=== PATIENT | female | born 1930 | race Asian ===

== ENCOUNTER 2020-02-14 03:41 | Inpatient (IN) | payer MEDICARE ==
[~2020-02-14] VITALS: Ht 157.5 cm; Wt 64.0 kg
--- NOTE | 2020-02-14 05:30 | NUR ---
GPS-X RAY OPERATOR NOTE: ADMITTED AN 89-YR OLD FEMALE, FROM [facility]. ADMITTED ON A 5150 FOR GD. PER HOLD, PT AGGRESSIVE WITH SCISSORS IN HER HAND, TRYING TO REMOVE ANIA FROM BACK OF HER HEAD. PT THREATENED STAFF WITH SCISSORS AND BECAME COMBATIVE WHEN ATTEMPTS WERE MADE TO TAKE AWAY SCISSORS. UPON FACE TO FACE ASSESSMENT, PATIENT IS A/OX1-2, ANXIOUS, DEPRESSED MOOD, FLAT AFFECT, UNCOOPERATIVE AND TEARFUL. PT. DENIES SI/HI/AVH AT THIS TIME. PT WAS ADVISED OF THE HOLD. PT RIGHTS HANDBOOK AND A GUIDE TO PRESCRIPTION MEDICATIONS GIVEN. IN NO APPARENT DISTRESS NOTED. PT BELONGINGS WERE INVENTORIED AND CHECKED FOR CONTRABAND. PT. IS UNDER THE PSYCHIATRIC CARE OF DR. EDISON PAGE AND THE MEDICAL CARE OF VANE LIRA. PT REFUSED FULL BODY ASSESSMENT, BUT PT ONLY ALLOWED PICTURE TO BE TAKEN ON HER LEFT UPPER CHEST PACEMAKER AND FACE. PT BECAME AGITATED WHEN BEING TOUCHED. BED LOCKED AND PLACED IN LOWEST POSITION TO MAINTAIN SAFETY. FALL PRECAUTIONS IMPLEMENTED. PATIENT REFUSED TO SIGN PAPERWORK SHE CLAIMED SHE JUST WANTED TO REST. PT REFUSED TO GIVE 2 RINGS WHITE/YELLOW ON HER LEFT 4TH FINGER. PT REFUSED FLU/PNEUMONIA VACCINE DESPITE OF EDUCATION THE RISKS AND BENEFITS. WILL CONTINUE TO MONITOR Q15 MINS ROUNDS FOR SAFETY AND BEHAVIOR. LEFT VOICE MESSAGE TO AKHIL (SON) REGARDING PT'S ADMISSION. WILL ENDORSE TO THE DAY SHIFT NURSE FOR CONTINUITY OF CARE.
[2020-02-14 05:48] VITALS: BP 135/66
[2020-02-14] MEDS ORDERED: MAGNESIUM HYDROXIDE 30 ML UDC PO PRN (06:00)
[2020-02-14] MEDS ORDERED: ACETAMINOPHEN 325 MG TABLET PO PRN ×2 (06:00→10:00)
[2020-02-14] MEDS ORDERED: TEMAZEPAM 7.5 MG CAPSULE PO PRN (06:00)
[2020-02-14] MEDS ORDERED: BLOOD SUGAR DIAGNOSTIC 1 EACH STRIP IN ONE (06:00)
[2020-02-14] MEDS ORDERED: MAG HYDROX/AL HYDROX/SIMETH 30 ML UDC PO PRN (06:00)
[2020-02-14] MEDS ORDERED: LORAZEPAM 0.5 MG TABLET PO PRN (06:00)
[2020-02-14 08:00] VITALS: BP 113/55
[2020-02-14] MEDS ORDERED: ASPI-1420 PO (09:06)
[2020-02-14] MEDS ORDERED: DIGO125T PO (09:06)
[2020-02-14] MEDS ORDERED: PANT40TA2 PO (09:06)
[2020-02-14] MEDS ORDERED: SPIR25TA PO (09:06)
[2020-02-14] MEDS ORDERED: DRON400T2 PO (09:06)
[2020-02-14] MEDS ORDERED: POLY15DR40 EACHEYE (09:06)
[2020-02-14] MEDS ORDERED: MULT-447 PO (09:06)
[2020-02-14] MEDS ORDERED: SODI88SP18 (09:06)
[2020-02-14] MEDS ORDERED: MIRT7.5T10 PO (09:06)
[2020-02-14] MEDS ORDERED: LIDO30AD10 TP (09:06)
[2020-02-14] MEDS ORDERED: MAGN400O6 PO (09:06)
[2020-02-14] MEDS ORDERED: PRAV10TA40 PO (09:06)
[2020-02-14] MEDS ORDERED: GUAI100S11 PO (09:06)
[2020-02-14] MEDS ORDERED: LORA10TA7 PO (09:06)
[2020-02-14] MEDS ORDERED: LACT-58 PO (09:06)
[2020-02-14] MEDS ORDERED: MEMA10TA PO (09:06)
[2020-02-14] MEDS ORDERED: LEVO112T2 PO (09:06)
[2020-02-14] MEDS ORDERED: DONE10TA44 PO (09:06)
[2020-02-14] MEDS ORDERED: ZOLP5TAB8 PO (09:06)
[2020-02-14] MEDS ORDERED: IPRA3AMP23 IH (09:06)
[2020-02-14] MEDS ORDERED: TYL2T PO (09:06)
[2020-02-14] MEDS ORDERED: THIA100T70 PO (09:06)
[2020-02-14] MEDS ORDERED: FURO-145 PO (09:06)
[2020-02-14] MEDS ORDERED: CRAN450C PO (09:06)
[2020-02-14] MEDS ORDERED: ERGO500014 PO (09:06)
[2020-02-14] MEDS ORDERED: FERR325T23 PO (09:06)
[2020-02-14] MEDS ORDERED: ACET-868 PO (09:06)
[2020-02-14] MEDS ORDERED: DULO60CA45 PO (09:06)
[2020-02-14] MEDS ORDERED: LORATADINE 10 MG TABLET PO PRN (10:00)
[2020-02-14] MEDS ORDERED: GUAIFENESIN 300 MG/15 ML UDC PO PRN (10:00)
--- NOTE | 2020-02-14 13:35 | NUR ---
Facility Contact: Soha ([phone]) from [facility] called the SW and stated that the pt may not be allowed to return if she receives a dementia diagnosis. She asked that the SW keep her involved in the treatment planning.
--- NOTE | 2020-02-14 15:02 | NUR ---
Family Contact: SW called the pts son, Megan ([phone]), and informed him that the SW spoke to the facility who are stating that the pt will need alternative placement if she has a dementia diagnosis. Pts son stated that he wants the MD in the hospital to evaluate and then wants to be informed. SW stated that someone will follow up with him.
--- NOTE | 2020-02-14 15:48 | NUR ---
Initial Discharge Plan: Pt currently resides at [facility] located at [address] [place] [address]; ([phone]). Per pts son, he would like the pt to return to the facility. LONDON will work with the pt, pts son and the pts MD regarding appropriate discharge planning. SW will form a safe and proper discharge.
[2020-02-14 16:00] VITALS: BP 132/54
[2020-02-14] MEDS: PANTOPRAZOLE 40 MG TABLET.DR PO SCH (17:00)
[2020-02-14] MEDS: ACETAMINOPHEN 325 MG TABLET PO SCH (17:00)
[2020-02-14] MEDS: DRONEDARONE HYDROCHLORIDE 400 MG TABLET PO SCH (17:00)
--- NOTE | 2020-02-14 17:27 | NUR ---
GPS MITTEN STITCHER: NOTES PT REFUSED HER DINNER, PT JUST WANTS TO SLEEP. NO DISTRESS NOTED.
[2020-02-14 20:20] VITALS: BP 107/52
[2020-02-14] MEDS: ATORVASTATIN 10 MG TABLET PO SCH (21:33)
[2020-02-15] MEDS: LEVOTHYROXINE SODIUM 112 MCG TABLET PO SCH (07:21)
[2020-02-15 07:48] LABS: CHOLESTEROL 169 mg/dL (<200); HDL CHOLESTEROL 44 mg/dL (40-60); LDL 98 mg/dL (0-99); TRIGLYCERIDES 219 mg/dL (30-150)
[2020-02-15 07:50] LABS: ALBUMIN 2.2 g/dL (3.4-5.0); BILIRUBIN,TOTAL 0.3 mg/dL (0.2-1.0); CALCIUM, SERUM 8.3 mg/dL (8.5-10.1); CREATININE 1.2 mg/dL (0.6-1.3); POTASSIUM 3.9 mmol/L (3.5-5.1); TOTAL PROTEIN, SERUM 5.8 g/dL (6.4-8.2)
[2020-02-15 08:00] VITALS: BP 124/57
--- NOTE | 2020-02-15 09:00 | NUR ---
RN NOTE- PT WITHDRAWN, ISOLATIVE CALM PO INTAKE FAIR MED COMPLIANT NO BEHAVIORAL ISSUES
[2020-02-15] MEDS: ACETAMINOPHEN 325 MG TABLET PO SCH ×2 (09:21→16:54)
[2020-02-15] MEDS: ASPIRIN EC 81 MG TABLET.DR PO SCH (09:22)
[2020-02-15] MEDS: SPIRONOLACTONE 25 MG TABLET PO SCH (09:22)
[2020-02-15] MEDS: THIAMINE HCL 100 MG TABLET PO SCH (09:22)
[2020-02-15] MEDS: FUROSEMIDE 20 MG TABLET PO SCH (09:22)
[2020-02-15] MEDS: PANTOPRAZOLE 40 MG TABLET.DR PO SCH ×2 (09:22→16:54)
[2020-02-15] MEDS: LIDOCAINE 5% (PATCH) 1 EA PATCH TP SCH (09:23)
[2020-02-15] MEDS: FERROUS SULFATE (325 MG) 325 MG/TAB TABLET PO SCH (09:24)
[2020-02-15] MEDS: DRONEDARONE HYDROCHLORIDE 400 MG TABLET PO SCH ×2 (09:26→16:55)
--- NOTE | 2020-02-15 11:34 | NUR ---
WOUND CARE CONSULT: PT PRESENTS WITH RAISED AREA TO POSTERIOR SCALP WITH DRY ABRASION, PRESENT ON ADMISSION. RECOMMENDATIONS MADE FOR SKIN PROTECTION. DISCUSSED WITH NURSING STAFF. PT IS INCONTINENT. MD IN AGREEMENT WITH PLAN OF CARE. Addendum: 02/15/20 at 1135 by BOGDAN MADRID WNDNU Amended: Links added.
[2020-02-15] MEDS: DIGOXIN 0.125 MG TABLET PO SCH (12:40)
[2020-02-15] MEDS: Z GUARD REMEDY 2 OZ OINT TP SCH (12:40)
--- NOTE | 2020-02-15 12:41 | NUR ---
RN NOTE- APICAL HR 57/M DIGOXIN HELD
[2020-02-15 16:00] VITALS: BP 117/53
[2020-02-15 20:38] VITALS: BP 119/44
--- NOTE | 2020-02-15 21:15 | NUR ---
GPS RN NOTE: REFUSED FULL SKIN ASSESSMENT PATIENT REFUSED FULL BODY SKIN ASSESSMENT. NOTED PATIENT WITH RIGHT & LEFT BUTTOCK REDNESS BUT UNABLE TO TAKE PICTURE DUE TO PT'S UNCOOPERATIVE BEHAVIOR, WANTED TO BE CLEANED QUICK & COVER HERSELF, EMOTIONAL, ANXIOUS & UNPREDICTABLE. Z GUARD APPLIED. ABLE TO TURN & REPOSITION IN BED INDEPENDENTLY.
--- NOTE | 2020-02-15 21:45 | NUR ---
GPS RN NOTE: SEEN BY DR. HOGAN PATIENT SEEN BY DR. HOGAN WITH NEW ORDER. NOTED & CARRIED OUT.
[2020-02-15] MEDS: MIRTAZAPINE 15 MG TABLET PO SCH (21:47)
[2020-02-15] MEDS: ATORVASTATIN 10 MG TABLET PO SCH (21:47)
--- NOTE | 2020-02-15 22:30 | NUR ---
GPS RN NOTE PATIENT ASKED TO EAT, STATED," I AM HUNGRY, CAN YOU GIVE ME BREAD." PATIENT HAD SLICE OF BREAD, APPLE SAUCE & APPLE/CRANBERRY JUICE & TOLERATED WELL. CONTINUING TO MONITOR FOR ANY CHANGES.
[2020-02-15 23:06] VITALS: BP 126/55
[2020-02-16] MEDS: Z GUARD REMEDY 2 OZ OINT TP PRN (00:14)
--- NOTE | 2020-02-16 00:30 | NUR ---
GPS RN NOTE PATIENT HAD LOOSE, FOUL ODOR BM X 2, NOTIFIED DR. MARTINEZ ABOUT BM FINDINGS, ORDERED TO COLLECT STOOL FOR C-DIFF. WILL CONTINUE TO MONITOR FOR ANY CHANGES.
--- NOTE | 2020-02-16 06:56 | NUR ---
NO BM AT THIS TIME TO COLLECT FOR STOOL C-DIFF, WILL ENDORSE TO AM RN FOR CONTINUITY OF CARE.
[2020-02-16 08:00] VITALS: BP 126/60
[2020-02-16] MEDS: PANTOPRAZOLE 40 MG TABLET.DR PO SCH ×2 (08:32→16:55)
[2020-02-16] MEDS: ASPIRIN EC 81 MG TABLET.DR PO SCH (08:32)
[2020-02-16] MEDS: LEVOTHYROXINE SODIUM 112 MCG TABLET PO SCH (08:32)
[2020-02-16] MEDS: THIAMINE HCL 100 MG TABLET PO SCH (08:32)
[2020-02-16] MEDS: FERROUS SULFATE (325 MG) 325 MG/TAB TABLET PO SCH (08:32)
[2020-02-16] MEDS: SPIRONOLACTONE 25 MG TABLET PO SCH (08:32)
[2020-02-16] MEDS: FUROSEMIDE 20 MG TABLET PO SCH (08:32)
[2020-02-16] MEDS: LIDOCAINE 5% (PATCH) 1 EA PATCH TP SCH (08:33)
[2020-02-16] MEDS: ACETAMINOPHEN 325 MG TABLET PO SCH ×2 (08:33→16:55)
[2020-02-16] MEDS: DRONEDARONE HYDROCHLORIDE 400 MG TABLET PO SCH ×2 (09:42→16:56)
[2020-02-16] MEDS: Z GUARD REMEDY 2 OZ OINT TP SCH (09:43)
[2020-02-16] MEDS ORDERED: ERGOCALCIFEROL (VITAMIN D 2) 50,000 UNIT CAPSULE PO SCH (10:00)
[2020-02-16 16:00] VITALS: BP 109/56
--- NOTE | 2020-02-16 20:30 | NUR ---
GPS RN NOTE: STOOL SPECIMEN COLLECTED TO R/O C-DIFF ORDERED BY DR. MARTINEZ & SENT TO THE LAB.
[2020-02-16 20:50] VITALS: BP 105/53
[2020-02-16] MEDS: MIRTAZAPINE 15 MG TABLET PO SCH (21:59)
[2020-02-16] MEDS: ATORVASTATIN 10 MG TABLET PO SCH (21:59)
[2020-02-17] MEDS: Z GUARD REMEDY 2 OZ OINT TP PRN (03:12)
[2020-02-17 08:00] VITALS: BP 113/64
[2020-02-17] MEDS: DRONEDARONE HYDROCHLORIDE 400 MG TABLET PO SCH ×2 (08:49→17:27)
[2020-02-17] MEDS: THIAMINE HCL 100 MG TABLET PO SCH (08:49)
[2020-02-17] MEDS: PANTOPRAZOLE 40 MG TABLET.DR PO SCH ×2 (08:49→17:26)
[2020-02-17] MEDS: LEVOTHYROXINE SODIUM 112 MCG TABLET PO SCH (08:49)
[2020-02-17] MEDS: FERROUS SULFATE (325 MG) 325 MG/TAB TABLET PO SCH (08:49)
[2020-02-17] MEDS: ACETAMINOPHEN 325 MG TABLET PO SCH ×2 (08:49→17:26)
[2020-02-17] MEDS: SPIRONOLACTONE 25 MG TABLET PO SCH (08:50)
[2020-02-17] MEDS: LIDOCAINE 5% (PATCH) 1 EA PATCH TP SCH (08:50)
[2020-02-17] MEDS: ASPIRIN EC 81 MG TABLET.DR PO SCH (08:50)
[2020-02-17] MEDS: FUROSEMIDE 20 MG TABLET PO SCH (08:50)
[2020-02-17] MEDS: Z GUARD REMEDY 2 OZ OINT TP SCH (09:09)
[2020-02-17] MEDS: DIGOXIN 0.125 MG TABLET PO SCH (14:00)
[2020-02-17 16:00] VITALS: BP 154/55
[2020-02-17 20:27] VITALS: BP 101/46
[2020-02-17 20:40] VITALS: BP 101/46
[2020-02-17 21:14] VITALS: BP 104/55
[2020-02-17] MEDS: ATORVASTATIN 10 MG TABLET PO SCH (21:41)
--- NOTE | 2020-02-17 21:45 | NUR ---
GPS RN NOTE: SEEN BY MD PATIENT WAS SEEN BY DR. HOGAN WITH NO NEW ORDER AT THIS TIME. PATIENT VERBALIZED THOUGHTS OF WANTING TO TO DR. HOGAN BUT NO PLANS. PT. ALSO STATED THAT SHE FEELS DEPRESSED. CONTINUING TO MONITOR PATIENT Q 15 MIN & PRN FOR SAFETY, MOOD & BEHAVIOR.
[2020-02-17] MEDS: MIRTAZAPINE 15 MG TABLET PO SCH (21:56)
[2020-02-18] MEDS: Z GUARD REMEDY 2 OZ OINT TP PRN (03:16)
[2020-02-18] MEDS: LEVOTHYROXINE SODIUM 112 MCG TABLET PO SCH (07:35)
[2020-02-18 08:00] VITALS: BP 127/65
[2020-02-18] MEDS: PANTOPRAZOLE 40 MG TABLET.DR PO SCH ×2 (08:28→17:05)
[2020-02-18] MEDS: ASPIRIN EC 81 MG TABLET.DR PO SCH (08:28)
[2020-02-18] MEDS: ACETAMINOPHEN 325 MG TABLET PO SCH ×2 (08:28→17:05)
[2020-02-18] MEDS: FERROUS SULFATE (325 MG) 325 MG/TAB TABLET PO SCH (08:28)
[2020-02-18] MEDS: FUROSEMIDE 20 MG TABLET PO SCH (08:29)
[2020-02-18] MEDS: SPIRONOLACTONE 25 MG TABLET PO SCH (08:29)
[2020-02-18] MEDS: THIAMINE HCL 100 MG TABLET PO SCH (08:30)
[2020-02-18] MEDS: DRONEDARONE HYDROCHLORIDE 400 MG TABLET PO SCH ×2 (08:35→17:05)
[2020-02-18] MEDS: Z GUARD REMEDY 2 OZ OINT TP SCH (08:35)
[2020-02-18] MEDS: LIDOCAINE 5% (PATCH) 1 EA PATCH TP SCH (08:49)
[2020-02-18 16:19] VITALS: BP 144/80
[2020-02-18 20:18] VITALS: BP 106/61
[2020-02-18] MEDS: ATORVASTATIN 10 MG TABLET PO SCH (21:03)
[2020-02-18] MEDS: MIRTAZAPINE 15 MG TABLET PO SCH (21:04)
[2020-02-19] MEDS: LEVOTHYROXINE SODIUM 112 MCG TABLET PO SCH (06:42)
[2020-02-19 08:00] VITALS: BP 104/49
[2020-02-19] MEDS: THIAMINE HCL 100 MG TABLET PO SCH (08:42)
[2020-02-19] MEDS: ACETAMINOPHEN 325 MG TABLET PO SCH ×2 (08:42→17:07)
[2020-02-19] MEDS: SPIRONOLACTONE 25 MG TABLET PO SCH (08:43)
[2020-02-19] MEDS: ASPIRIN EC 81 MG TABLET.DR PO SCH (08:43)
[2020-02-19] MEDS: FERROUS SULFATE (325 MG) 325 MG/TAB TABLET PO SCH (08:43)
[2020-02-19] MEDS: PANTOPRAZOLE 40 MG TABLET.DR PO SCH ×2 (08:43→17:07)
[2020-02-19] MEDS: FUROSEMIDE 20 MG TABLET PO SCH (08:44)
--- NOTE | 2020-02-19 08:44 | NUR ---
RN NOTE: MEDICATION HELD 0900 SPIRONOLACTONE AND LASIX HELD DUES TO BP 104/49
[2020-02-19] MEDS: LIDOCAINE 5% (PATCH) 1 EA PATCH TP SCH (08:47)
[2020-02-19] MEDS: DRONEDARONE HYDROCHLORIDE 400 MG TABLET PO SCH ×2 (08:47→17:06)
[2020-02-19] MEDS: Z GUARD REMEDY 2 OZ OINT TP SCH (08:52)
[2020-02-19] MEDS: LORAZEPAM 1 MG TABLET PO PRN ×2 (09:42→20:03)
--- NOTE | 2020-02-19 09:42 | NUR ---
RN NOTE: ANXIETY AND AGITATION PT EXHIBITING INCREASED ANXIETY, AGITATION AND IRRITABILITY. ATTEMPTING TO WALK WITH WALKER. UNSTEADY GAIT. UNABLE TO BE REDIRECTED. YELLING AND THROWING ITEMS AT STAFF. MEDICATED WITH ATIVAN 1MG PO PRN.
--- NOTE | 2020-02-19 12:49 | NUR ---
RN NOTE: DIGOXIN HELD DIGOXIN HELD DUE TO APICAL PULE 58.
[2020-02-19] MEDS: DIGOXIN 0.125 MG TABLET PO SCH (12:50)
[2020-02-19 16:00] VITALS: BP 108/51
--- NOTE | 2020-02-19 19:56 | NUR ---
GPS RN NOTES: REFUSED ATIVAN PT AGITATED IN BED. TRYING TO GET OUT OF BED YELLING. OFFERED PT ATIVAN 1MG PO PRN ORDERED. PT AGREED. PULLED MEDICATION OUT. PT THEN REFUSED MEDICATION AND ANGRY MOOD. PT REFUSED X3. WASTED MEDICATION W/ REGISTERED PHLEBOTOMIST PART TIME NURSE WITNESS WASTE. WILL CONTINUE TO MONITOR.
--- NOTE | 2020-02-19 20:03 | NUR ---
GPS RN NOTES: ANXIOUS PT STATED, "I WANT TO GO HOME! GIVE ME PILL NOW." PT ANXIOUS AND AGITATED. OFFERED ATIVAN PRN ORDERED. VITALS CHECKED WNL. PT AGREED AGAIN AND TOLERATED MEDICATION WELL. CONTINUE TO MONITOR.
[2020-02-19 20:23] VITALS: BP 115/65
[2020-02-19 20:53] VITALS: BP 137/64
[2020-02-19] MEDS: MIRTAZAPINE 15 MG TABLET PO SCH (21:20)
[2020-02-19] MEDS: ATORVASTATIN 10 MG TABLET PO SCH (21:20)
--- NOTE | 2020-02-20 01:22 | NUR ---
GPS RN NOTES: PER DAY SHIFT, PTS URINE HAS A PUNGENT SMELL. NOTIFIED HADOOP SOFTWARE ENGINEER DR MARTINEZ IN REGARDS TO URINE. ORDERED URINALYSIS AND CULTURE. ORDERS NOTED AND CARRIED OUT. PT IS CURRENTLY ASLEEP AND COMFORTABLE IN BED. WILL COLLECT URINE WHEN PT WAKES UP AND WILL ALSO ENDORSE TO DAY SHIFT TO FOLLOW UP. CONTINUE TO MONITOR.
[2020-02-20 08:00] VITALS: BP 110/58
[2020-02-20] MEDS: PANTOPRAZOLE 40 MG TABLET.DR PO SCH ×2 (08:02→16:34)
[2020-02-20] MEDS: LEVOTHYROXINE SODIUM 112 MCG TABLET PO SCH (08:04)
[2020-02-20] MEDS: DRONEDARONE HYDROCHLORIDE 400 MG TABLET PO SCH ×2 (08:05→16:34)
[2020-02-20] MEDS: SPIRONOLACTONE 25 MG TABLET PO SCH (08:06)
[2020-02-20] MEDS: ASPIRIN EC 81 MG TABLET.DR PO SCH (08:06)
[2020-02-20] MEDS: ACETAMINOPHEN 325 MG TABLET PO SCH ×2 (08:06→16:35)
[2020-02-20] MEDS: FUROSEMIDE 20 MG TABLET PO SCH (08:06)
[2020-02-20] MEDS: THIAMINE HCL 100 MG TABLET PO SCH (08:06)
[2020-02-20] MEDS: FERROUS SULFATE (325 MG) 325 MG/TAB TABLET PO SCH (08:06)
[2020-02-20] MEDS: Z GUARD REMEDY 2 OZ OINT TP SCH (08:07)
[2020-02-20] MEDS: LIDOCAINE 5% (PATCH) 1 EA PATCH TP SCH (09:22)
--- NOTE | 2020-02-20 13:50 | NUR ---
Family Contact: SW called the pts son, Megan ([phone]), and he stated that he wanted the SW to speak to his sister in law, Mela ([phone]). LONDON stated that she would.
--- NOTE | 2020-02-20 13:51 | NUR ---
Family Contact: SW called the pts daughter in law, Mela ([phone]), and left a message stating that the SW would like to discuss the pts treatment with her per the request of the pts son that the SW was in contact with.
--- NOTE | 2020-02-20 13:58 | NUR ---
Facility Contact: LONDON called [facility] ([phone]) and spoke to Harshad who stated that the pt will be able to return to the facility as long as she does not have a dementia diagnosis and LONDON stated that it is on the History and Physical. Harshad asked about the pts current behaviors and LONDON stated that the pt has been throwing things at the staff and is slightly agitated and not ready for discharge at this time but will be soon. Harshad stated that he will be sending a physicians report and will need a covid test at the time of discharge.
[2020-02-20 16:00] VITALS: BP 104/52
[2020-02-20 20:32] VITALS: BP 107/53
[2020-02-20] MEDS: MIRTAZAPINE 15 MG TABLET PO SCH (21:20)
[2020-02-20] MEDS: ATORVASTATIN 10 MG TABLET PO SCH (21:20)
[2020-02-21] MEDS: LEVOTHYROXINE SODIUM 112 MCG TABLET PO SCH (07:51)
[2020-02-21 08:00] VITALS: BP 103/56
[2020-02-21] MEDS: SPIRONOLACTONE 25 MG TABLET PO SCH (08:01)
[2020-02-21] MEDS: THIAMINE HCL 100 MG TABLET PO SCH (08:02)
[2020-02-21] MEDS: DRONEDARONE HYDROCHLORIDE 400 MG TABLET PO SCH ×2 (08:02→16:51)
[2020-02-21] MEDS: FERROUS SULFATE (325 MG) 325 MG/TAB TABLET PO SCH (08:02)
[2020-02-21] MEDS: ASPIRIN EC 81 MG TABLET.DR PO SCH (08:02)
[2020-02-21] MEDS: ACETAMINOPHEN 325 MG TABLET PO SCH ×2 (08:02→16:52)
[2020-02-21] MEDS: PANTOPRAZOLE 40 MG TABLET.DR PO SCH ×2 (08:02→16:52)
[2020-02-21] MEDS: FUROSEMIDE 20 MG TABLET PO SCH (08:02)
[2020-02-21] MEDS: Z GUARD REMEDY 2 OZ OINT TP SCH (08:03)
[2020-02-21] MEDS: LIDOCAINE 5% (PATCH) 1 EA PATCH TP SCH (08:06)
--- NOTE | 2020-02-21 10:00 | NUR ---
Family Contact: SW called the pts daughter in law, Mela ([phone]), who stated that she wants the pt to be discharged as soon as possible and the SW stated that the pts psychiatrist is stating that he would like the pt to be discharged tomorrow. Pts daughter in law stated that she will arrive around 11AM to take her to the facility.
--- NOTE | 2020-02-21 10:02 | NUR ---
Facility Contact: LONDON called [facility] ([phone]) and spoke to Harshad and informed him that the pt will be discharged back to their facility tomorrow. LONDON stated that she needs a physicians report to be faxed over and that she will get a COVID test for them.
[2020-02-21] MEDS: DIGOXIN 0.125 MG TABLET PO SCH (12:44)
[2020-02-21 16:00] VITALS: BP 116/57
--- NOTE | 2020-02-21 20:00 | NUR ---
GPS RN NOTE: PT. REFUSED TO TAKE HER V/S. OFFERED 3 X AND STILL REFUSED. WILL CONTINUE TO MONITOR
[2020-02-21] MEDS: ATORVASTATIN 10 MG TABLET PO SCH (21:16)
[2020-02-21] MEDS: MIRTAZAPINE 15 MG TABLET PO SCH (21:16)
--- NOTE | 2020-02-21 22:49 | NUR ---
GPS RN NOTE: INSOMNIA PT. UNABLE TO SLEEP. ADMINSITERED RESTORIL 15 MG PO PRN ORDERED. WILL CONTINUE TO MONITOR
[2020-02-22] MEDS: LEVOTHYROXINE SODIUM 112 MCG TABLET PO SCH (07:22)
[2020-02-22 08:00] VITALS: BP 116/52
[2020-02-22] MEDS: THIAMINE HCL 100 MG TABLET PO SCH (08:22)
[2020-02-22] MEDS: DRONEDARONE HYDROCHLORIDE 400 MG TABLET PO SCH (08:22)
[2020-02-22] MEDS: ACETAMINOPHEN 325 MG TABLET PO SCH (08:22)
[2020-02-22] MEDS: ASPIRIN EC 81 MG TABLET.DR PO SCH (08:22)
[2020-02-22] MEDS: SPIRONOLACTONE 25 MG TABLET PO SCH (08:23)
[2020-02-22] MEDS: LIDOCAINE 5% (PATCH) 1 EA PATCH TP SCH (08:23)
[2020-02-22] MEDS: PANTOPRAZOLE 40 MG TABLET.DR PO SCH (08:23)
[2020-02-22] MEDS: FUROSEMIDE 20 MG TABLET PO SCH (08:23)
[2020-02-22] MEDS: FERROUS SULFATE (325 MG) 325 MG/TAB TABLET PO SCH (08:23)
[2020-02-22] MEDS: Z GUARD REMEDY 2 OZ OINT TP SCH (08:32)
--- NOTE | 2020-02-22 09:00 | NUR ---
RN NOTE-N PT OOB IN JAIN WITH FWW, STANDBY ASSIST, PO INTAKE FAIR, MED COMPLIANT, ORIENTED TO PERSON ONLY CONFUSED BUT CALM DIRECTABLE. DC TODAY
--- NOTE | 2020-02-22 09:59 | NUR ---
Facility Contact: LONDON called [facility] ([phone]) and spoke to Harshad. LONDON informed him that she called three times yesterday asking for a Physicians Report to get sent to her and that she had informed him of this two days prior and he stated that he was unable to send it because he was waiting for additional documents that are necessary from his District Nurse. LONDON stated that she has a copy of a blank physicians report that she had the MD fill out but since he was not sending her the paperwork. Harshad stated that will not be enough and LONDON stated that was due to his delay and that the pt is being discharged in one hour so they will have to figure out a solution. He stated that he will speak to his nurse and call the SW back.
--- NOTE | 2020-02-22 10:30 | NUR ---
Family Contact: SW called the pts daughter in law, Mela ([phone]), and informed her of the situation with the facility not accepting the pt back due to a lack of paperwork that they did not send over sooner. She stated that she will speak to the facility.
--- NOTE | 2020-02-22 10:41 | NUR ---
Facility Contact: Harshad from [facility] ([phone]) called the SW and stated that he wants the 602 form to be faxed to [phone]. He then stated that the facility needs to speak to the pts family in regards to adding a care person and stated that he will call the SW back with an update.
--- NOTE | 2020-02-22 12:25 | NUR ---
BUSINESS CONSULTANT NOTE- PT DC INTO THE CARE OF THE PTS DAUGHTER IN LAW LILIYA ([phone]). pT DC INSTRUCTIONS REVIEWED W DAUGHTER IN LAW AND VERBALIZED UNDERSTANDING. VS STABLE , PT ALERT ORIENTED TO PERSON ONLY, CONFUSED AND OPPOSITIONAL TO CARE AT TIMES. PT CALM AND DIRECTABLE AT TIME OF DC. ID WRISTBAND REMOVED, VALUABLES RETURNED, PHOTOS OF SACRAL REDNESS THAT HAS RESOLVED TAKEN FOR CHART. ALL OTHER SKIN ISSUES RESOLVED. PT REFUSED FLU AND PNA VACCINES. ESCORTED OFF UNIT AND SIGNED INTO CARE OF DAUGHTER IN LAW BY THIS RN.
--- NOTE | 2020-02-22 12:41 | NUR ---
Family Contact: Pts daughter in law, Mela ([phone]), called the SW and stated that she is running into a problem with the facility as they are asking for more money for a private heater operator for the pt. Pts daughter in law stated that she wanted to take the pt to her home. SW informed the nurses and changed the discharge plan.
--- NOTE | 2020-02-22 12:47 | NUR ---
Discharge Note: Pt will be discharged to her daughter in laws [place] [address] [place] [address]. Pts daughter in law, Mela ([phone]), will picker box operator the pt around 11am. Upon discharge, the pt appears to be in a dysphoric mood with a congruent affect. Pt appears to be oriented x2 and refuses to speak with the greeting card writer. Pt denies both suicidal and homicidal ideation as well as auditory and visual hallucinations. Pt appears to be nonambulatory and appears to be disheveled. Pt will be under the care of psychiatrist, Dr. Cornelius Davila, [place] [address] [facility] [address] [address]; . Pts psychiatrist called the SW and stated that he will contact the pt directly to resume services. Pt will be under the care of her internet e commerce specialist, Dr. Chase Headley, located [address] [place] [address]; . The multidisciplinary exit care form was done, printed, signed, and given to the patient.
== END 2020-02-22 12:25 | disposition home or self-care (01) | DRG 881 ==
LOC: GPS 05:23
PROVIDERS: ADMIT Psychiatry & Neurology Psychiatry; ATTEND Internal Medicine
DX: F32.9 Major depressive disorder, single episode, unspecified (principal); R45.851 Suicidal ideations; F29 Unspecified psychosis not due to a substance or known physiological condition; M19.90 Unspecified osteoarthritis, unspecified site; D64.9 Anemia, unspecified; I10 Essential (primary) hypertension; D63.8 Anemia in other chronic diseases classified elsewhere; D56.3 Thalassemia minor; F03.90 Unspecified dementia, unspecified severity, without behavioral disturbance, psychotic disturbance, mood disturbance, and anxiety; E78.5 Hyperlipidemia, unspecified; R26.9 Unspecified abnormalities of gait and mobility; I49.5 Sick sinus syndrome; E03.9 Hypothyroidism, unspecified; D69.6 Thrombocytopenia, unspecified; Z95.0 Presence of cardiac pacemaker; I25.10 Atherosclerotic heart disease of native coronary artery without angina pectoris; E11.9 Type 2 diabetes mellitus without complications; J44.9 Chronic obstructive pulmonary disease, unspecified; R56.9 Unspecified convulsions
CPT/HCPCS: 36415; 71045-TC; 80053-TC; 80061-TC; 80162-TC; 82962-TC; 84443-TC; 87081-TC; 97112-TC; 97116-TC; 97530-TC